=== PATIENT | male | born 1965 | race Caucasian/White ===

== ENCOUNTER 2017-03-31 17:51 | Emergency (ER) | payer BC ==
--- NOTE | 2017-03-31 18:21 | EDM.PDOC ---
ED HPI GENERAL MEDICAL PROBLEM - General Chief Complaint: Back Pain or Injury Stated Complaint: SORE/BACK Time Seen by Provider: 03/31/17 18:07 Source of Information: Reports: Patient History Limitations: Reports: No Limitations - History of Present Illness INITIAL COMMENTS - FREE TEXT/NARRATIVE: History of present illness: [51-year-old male comes in complaining of abscess to right upper back indicates it is gotten progressively tender and painful and he would like to have it addressed.] Review of systems: As per history of present illness and below otherwise all systems reviewed and negative. Past medical history: As per history of present illness and as reviewed below otherwise noncontributory. Surgical history: As per history of present illness and as reviewed below otherwise noncontributory. Social history: No reported history of drug or alcohol abuse. Family history: As per history of present illness and as reviewed below otherwise noncontributory. Physical exam: HEENT: Atraumatic, normocephalic, pupils reactive, negative for conjunctival pallor or scleral icterus, mucous membranes moist, throat clear, neck supple, nontender, trachea midline. Lungs: Clear to auscultation, breath sounds equal bilaterally, chest nontender. Heart: S1S2, regular, negative for clicks, rubs, or JVD. Abdomen: Soft, nondistended, nontender. Negative for masses or hepatosplenomegaly. Negative for costovertebral tenderness. Pelvis: Stable nontender. Genitourinary: Deferred. Rectal: Deferred. Extremities: Atraumatic, negative for cords or calf pain. Neurovascular unremarkable. Neuro: Awake, alert, oriented. Cranial nerves II through XII unremarkable. Cerebellum unremarkable. Motor and sensory unremarkable throughout. Exam nonfocal. Skin: 3 cm abscess approximately in the region over the right scapula Area cleaned with Betadine and prepped with 1% lidocaine until anesthesia obtained. 11 blade utilized to make an incision approximately 1-1/2 cm with chandni purulent drainage expressed and culture obtained. Iodoform tape gauze placed with a dressing over this Antibody some pain med provided while here as well as on discharge Diagnostics: [Wound culture] Therapeutics: [] Impression: [Abscess] Plan: [Antibiotics pain med] Definitive disposition and diagnosis as appropriate pending reevaluation and review of above. - Related Data Allergies Allergy/AdvReac Type Severity Reaction Status Date / Time shellfish derived Allergy Hives Verified 03/31/17 18:08 Home Meds: Home Meds Cephalexin [Keflex] 500 mg PO QID #40 capsule 03/31/17 [Rx] ED ROS GENERAL - Review of Systems Review Of Systems: See Below (See history of present illness) ED EXAM, GENERAL - Physical Exam Exam: See Below (The history of present illness) Departure - Departure Time of Disposition: 18:55 Disposition: Home, Self-Care 01 Condition: Good Clinical Impression: Abscess - Discharge Information Referrals: PCP,None [Primary Care Provider] - Additional Instructions: The following information is given to patients seen in the emergency department who are being discharged to home. This information is to outline your options for follow-up care. We provide all patients seen in our emergency department with a follow-up referral. The need for follow-up, as well as the timing and circumstances, are variable depending upon the specifics of your emergency department visit. If you don't have a primary care physician on staff, we will provide you with a referral. We always advise you to contact your personal physician following an emergency department visit to inform them of the circumstance of the visit and for follow-up with them and/or the need for any referrals to a consulting specialist. The emergency department will also refer you to a specialist when appropriate. This referral assures that you have the opportunity for follow-up care with a specialist. All of these measure are taken in an effort to provide you with optimal care, which includes your follow-up. Under all circumstances we always encourage you to contact your private physician who remains a resource for coordinating your care. When calling for follow-up care, please make the office aware that this follow-up is from your recent emergency room visit. If for any reason you are refused follow-up, please contact the [facility] Emergency Department at and asked to speak to the emergency department charge nurse. Take medication as directed Follow up with PCP in 3-4 days Return to ED as needed as discussed
[2017-03-31] MEDS ORDERED: Lidocaine 1% 20 ML MDV INJECT ONE (18:23)
[2017-03-31] MEDS ORDERED: Ondansetron 4 MG Tab.DIS PO ONE (18:31)
[2017-03-31] MEDS ORDERED: Ondansetron 4 MG Tab ONE (18:32)
[2017-03-31] MEDS ORDERED: cefTRIAXone 1,000 MG in Lidocaine 1% 1 ML IM ONE (18:48)
[2017-03-31] MEDS ORDERED: Ketorolac 60 MG/2 ML SDV IM ONE (18:49)
== END 2017-03-31 19:19 | disposition home or self-care (01) ==
LOC: MW.ED 17:51
DX: L02.212 Cutaneous abscess of back [any part, except buttock and flank] (principal)
CPT/HCPCS: 10061; 87070; 87077; 87186; 96372; 99283; A9270; J0696; J1885